=== PATIENT | male | born 1970 | race Caucasian/White ===

== ENCOUNTER 2018-03-24 15:52 | Emergency (ER) | payer SELFPAY ==
[2018-03-24 16:15] VITALS: PULSE 70; TEMP 98.6; O2SAT 100
[2018-03-24 17:31] LABS: SQUAMOUS EPITHIAL < 1 /hpf (0-5); URINE BILIRUBIN NEGATIVE (NEGATIVE); URINE BLOOD NEGATIVE (NEGATIVE); URINE CLARITY Clear (Clear); URINE COLOR Yellow (YELLOW); URINE GLUCOSE (UA) NORMAL (Normal); URINE LEUKOCYTE ESTERASE NEG Leu/uL (Negative); URINE PROTEIN NEGATIVE (NEGATIVE); URINE UROBILINOGEN NORMAL mg/dL (0.2-1.0)
--- NOTE | 2018-03-24 19:25 | US ---
Date of service: 03/24/2018 HISTORY: b/l (undescended) testicle pain x 3 days TECHNIQUE: Realtime sonography through the scrotum with color and doppler flow. COMPARISON: None Available. FINDINGS: RIGHT TESTICLE: Measures 3.09 x 0.83 x 1.35 cm. The right testicle is seen in the right groin region. Blood flow appreciated at the right testicle. RIGHT EPIDIDYMIS: Epididymal head measures 1.4 x 0.3 x0.95 cm. Grossly unremarkable appearance with normal flow. LEFT TESTICLE: Measures 2.5 x 0.76 x 1.5 cm. The left testicles is also seen in the left groin region. LEFT EPIDIDYMIS: Epididymal head measures 0.79 x 0.47 x 0.76 cm. Grossly unremarkable appearance with normal flow. HYDROCELE: None. VARICOCELE: None. OTHER FINDINGS: Bilateral enlarged lymph node in the inguinal region noted. IMPRESSION: Bilateral undescended testicles seen in the inguinal region. No evidence of testicular torsion. Mildly enlarged bilateral inguinal lymph nodes.
--- NOTE | 2018-03-24 19:46 | C.PDOC ---
Time Seen by Provider: 03/24/18 16:48 Chief Complaint (Nursing): Male Genitourinary History Per: Patient Onset/Duration Of Symptoms: Days (3) Current Symptoms Are (Timing): Still Present Severity: Moderate Quality Of Discomfort: "Pain" Alleviating Factors: None Additional History Per: Prior Records Past Medical History Reviewed: Historical Data, Nursing Documentation, Vital Signs Vital Signs: Last Vital Signs Temp 98.6 F 03/24/18 16:12 Pulse 70 03/24/18 16:12 Resp 18 03/24/18 16:12 BP 101/70 03/24/18 16:12 Pulse Ox 100 03/24/18 16:12 - Medical History PMH: Deep Vein Thrombosis Other PMH: Undescended testes Surgical History: No Surg Hx Family History: States: Unknown Family Hx - Social History Hx Tobacco Use: No Hx Alcohol Use: No Hx Substance Use: No - Immunization History Hx Tetanus Toxoid Vaccination: No Hx Influenza Vaccination: No Hx Pneumococcal Vaccination: No Review Of Systems Except As Marked, All Systems Reviewed And Found Negative. Constitutional: Negative for: Fever, Weakness Cardiovascular: Negative for: Chest Pain Respiratory: Negative for: Shortness of Breath Gastrointestinal: Negative for: Vomiting, Abdominal Pain Genitourinary: Negative for: Dysuria, Scrotal Pain Musculoskeletal: Negative for: Neck Pain, Back Pain Skin: Negative for: Rash Neurological: Negative for: Weakness, Numbness Physical Exam - Physical Exam Appears: Non-toxic, No Acute Distress Skin: Normal Color, Warm, Dry, No Rash Head: Atraumatic, Normacephalic Eye(s): bilateral: Normal Inspection, PERRL, EOMI Neck: Normal ROM, Supple Cardiovascular: Rhythm Regular Respiratory: Normal Breath Sounds, No Accessory Muscle Use Gastrointestinal/Abdominal: Soft, No Tenderness Back: No CVA Tenderness Male Genital: No Scrotal Swelling (scrotal sack is empty), Other (b/l undescended testes) Extremity: Normal ROM Neurological/Psych: Oriented x3, Normal Motor, Normal Sensation ED Course And Treatment O2 Sat by Pulse Oximetry: 100 Pulse Ox Interpretation: Normal - CT Scan/US Testicle US Other Rad Studies (CT/US): Read By Radiologist, Radiology Report Reviewed CT/US Interpretation: IMPRESSION: Bilateral undescended testicles seen in the inguinal region. No evidence of testicular torsion. Mildly enlarged bilateral inguinal lymph nodes. Disposition Discussed With : Catracho Lantigua Comment: He wants pt sent home on Ceftin 500mg bid x 10 days and f/up in his office. Doctor Will See Patient In The: Office Counseled Patient/Family Regarding: Studies Performed, Diagnosis, Need For Followup, Rx Given - Disposition Referrals: Catracho Lantigua MD [Staff Provider] - Disposition: HOME/ ROUTINE Disposition Time: 19:48 Condition: STABLE Additional Instructions: Follow up with a Urologist within 1-2 weeks for further evaluation and treatment. Return to the ER if you develop fever, vomiting, worsening of symptoms or if you have any other concerns. Prescriptions: Cefuroxime Axetil [Cefuroxime] 500 mg PO BID #20 tablet Naproxen [Naprosyn] 1 tab PO BID PRN #20 tab PRN Reason: Pain Instructions: Undescended Testes - Clinical Impression Clinical Impression: Testicle pain, Bilateral undescended testicles
[2018-03-24 19:59] VITALS: BP 135/70; RESP 14
== END 2018-03-24 20:00 | disposition home or self-care (01) ==
LOC: C.ER 15:52
DX: Q53.20 Undescended testicle, unspecified, bilateral (principal); N50.812 Left testicular pain; N50.811 Right testicular pain

== ENCOUNTER 2018-07-19 02:36 | Emergency (ER) | payer OTHER ==
--- NOTE | 2018-07-19 02:50 | C.PDOC ---
History Of Present Illness 48 year old male presents to the ER with a complaint of upper back pain that began at approximately 1900, associated with some nausea. Patient reports a Hx of similar in the past that resolved on it's own, which was dx as a muscle st rain. Pt also notes that he has a Hx of DVT, but without any leg swelling today. He admits to doing heavy lifting at home today. Denies weakness, numbness, chest pain, SOB, or vomiting. Time Seen by Provider: 07/19/18 02:49 Chief Complaint (Nursing): Back Pain History Per: Patient History/Exam Limitations: no limitations Onset/Duration Of Symptoms: Hrs Current Symptoms Are (Timing): Still Present Quality Of Discomfort: Unable To Describe Associated Symptoms: None Recent travel outside of the [place]: No Past Medical History Reviewed: Historical Data, Nursing Documentation, Vital Signs Vital Signs: Last Vital Signs Temp 97.5 F L 07/19/18 02:46 Pulse 54 L 07/19/18 02:46 Resp 20 07/19/18 02:46 BP 90/49 L 07/19/18 02:46 Pulse Ox 100 07/19/18 02:46 - Medical History PMH: Deep Vein Thrombosis Family History: States: Unknown Family Hx - Social History Hx Tobacco Use: No Hx Alcohol Use: No Hx Substance Use: No - Immunization History Hx Tetanus Toxoid Vaccination: No Hx Influenza Vaccination: No Hx Pneumococcal Vaccination: No Review Of Systems Constitutional: Negative for: Fever, Chills Cardiovascular: Negative for: Chest Pain, Palpitations Respiratory: Negative for: Shortness of Breath Gastrointestinal: Positive for: Nausea. Negative for: Vomiting Genitourinary: Negative for: Dysuria, Hematuria Musculoskeletal: Positive for: Back Pain (Upper) Neurological: Negative for: Weakness, Numbness Physical Exam - Physical Exam Appears: Non-toxic Skin: Normal Color, Warm, Dry Head: Atraumatic, Normacephalic Eye(s): bilateral: Normal Inspection, PERRL, EOMI Nose: Normal, No Flaring, No Discharge Oral Mucosa: Moist Tongue: Normal Appearing, No Swelling Lips: Normal Appearing Gingiva: Normal Appearing Throat: Normal, No Erythema, No Exudate Neck: Normal, Supple Chest: Symmetrical, No Tenderness Cardiovascular: Rhythm Regular Respiratory: Normal Breath Sounds, No Rales, No Rhonchi, No Wheezing Gastrointestinal/Abdominal: Normal Exam, Soft, No Tenderness Back: Normal Inspection, No CVA Tenderness, No Vertebral Tenderness, No Paraspinal Tenderness Extremity: Normal ROM, No Pedal Edema Neurological/Psych: Oriented x3, Normal Speech, Normal Cognition, Normal Motor, Normal Sensation Gait: Steady ED Course And Treatment - Laboratory Results Result Diagrams: 07/19/18 03:05 07/19/18 03:05 ECG: Interpreted By Me, Viewed By Me ECG Rhythm: Sinus Bradycardia ECG Interpretation: Normal Interpretation Of ECG: No STEMI Rate From EC O2 Sat by Pulse Oximetry: 100 (Room air) Pulse Ox Interpretation: Normal - CT Scan/US CTA Other Rad Studies (CT/US): Read By Radiologist, Radiology Report Reviewed CT/US Interpretation: CTA OF THE CHEST WITH IV CONTRAST. CLINICAL HISTORY: Chest pain. TECHNIQUE: Axial and reformatted sagittal and coronal images of the chest obtained after bolus IV contrast administration. FINDINGS: Normal enhancement of the main pulmonary artery and right and left pulmonary arteries. Normal enhancement of the bilateral peripheral pulmonary arteries. There is no demonstrated pulmonary embolism. Normal thoracic aorta and visualized great vessels. There is no demonstrated aortic dissection. Normal heart and pericardium. Normal mediastinum. Normal hilar regions. Normal visualized trachea and bronchi. The lungs are well expanded. Normal pulmonary parenchyma. Normal pleura. Normal chest wall structures. Normal osseous structures. Normal visualized upper abdomen. IMPRESSION: No demonstrated pulmonary embolism or arterial dissection. Medical Decision Making Medical Decision Makin yr old male p/w back pain. Notes he was lifting boxes when it occured. No chest pain or sob. No abdominal pain. No dark or bloody stool. No leg swelling. Given back pain and hx of DVT, will seek CTA. No leg swelling noted. CTA, CXR, and blood work ordered. Zofran administered. 17[address] Ct unremarkable. Abd remains non-ttp troponin and labs otherwise unremarkable given timeframe, likely non cardiac EKG w/ mildly sinus luis previously: TSH mildly elevated: no indication of myxedema coma. On monitor HR: 58 Given well appearance in NAD with Pain improved, clear for d/c home endrosed to pt msk chest pain as well as need to follow up w/ cards and endocrine for high TSH. Pt endorsed understanding and is agreeable. Disposition - Disposition Disposition Time: 05:34 Condition: GOOD Instructions: Muscle Strain (DC), Upper Back Pain (DC) Forms: [employer] (Sami) - Clinical Impression Clinical Impression: Back pain, Muscle strain - Scribe Statement The provider has reviewed the documentation as recorded by the Scribe Jaime Mcgee All medical record entries made by the Scribe were at my direction and personally dictated by me. I have reviewed the chart and agree that the record accurately reflects my personal performance of the history, physical exam, medical decision making, and the department course for this patient. I have also personally directed, reviewed, and agree with the discharge instructions and disposition.
[2018-07-19 03:16] LABS: BASO # 0.1 K/uL (0.0-0.2); BASO % 0.9 % (0.0-2.0); EOS # 0.2 K/uL (0.0-0.7); EOS % 2.8 % (0.0-4.0); HEMOGLOBIN 12.5 g/dL (12.0-18.0); LYMPH # 1.9 K/uL (1.0-4.3); MEAN CELL VOLUME 88.8 fL (80.0-94.0); MEAN CORPUSCULAR HEMOGLOBIN 28.8 pg (27.0-31.0); MEAN CORPUSCULAR HGB CONC 32.5 g/dL (33.0-37.0); MEAN PLATELET VOLUME 9.7 fL (7.2-11.7); MONO # 0.6 K/uL (0.0-0.8); MONO % 6.8 % (0.0-10.0); NEUT # 5.8 K/uL (1.8-7.0); NEUT % 67.5 % (50.0-75.0); RBC 4.34 Mil/uL (4.40-5.90); RED CELL DISTRIBUTION WIDTH 13.8 % (11.5-14.5); WHITE BLOOD COUNT 8.5 K/uL (4.8-10.8)
[2018-07-19 03:35] LABS: ALB/GLOB RATIO 1.1 (1.0-2.1); ALBUMIN 4.2 g/dL (3.5-5.0); ALT/SGPT 30 U/L (21-72); AST/SGOT 29 U/L (17-59); BLOOD UREA NITROGEN 30 mg/dL (9-20); CALCIUM 9.1 mg/dl (8.6-10.4); GFR NON-AFRICAN AMERICAN > 60; LIPASE 32 U/L (23-300)
[2018-07-19] MEDS ORDERED: Iodixanol 320 MG/ML 100 ML BOTTLE IV ONE (03:47)
[2018-07-19] MEDS ORDERED: Sodium Chloride 0.9% 1,000 ML IV ONE (04:00)
[2018-07-19 04:09] VITALS: RESP 16
[2018-07-19 05:13] VITALS: BP 107/63; PULSE 50; TEMP 98.1
[2018-07-19] MEDS ORDERED: Sodium Chloride 0.9% 1,000 ML ONE (05:20)
[2018-07-19 05:28] VITALS: O2SAT 100
--- NOTE | 2018-07-19 11:45 | CT ---
Date of service: 07/19/2018 PROCEDURE: CT Chest with contrast (Pulmonary Angiogram) HISTORY: back pain, hx of pe COMPARISON: None available. TECHNIQUE: Axial computed tomography images were obtained of the chest in the pulmonary arterial phase of enhancement. Coronal and sagittal reformatted images were created and reviewed. Intravenous contrast dose: 100 cc Visipaque Radiation dose: Total exam DLP = 264.23 mGy-cm. This CT exam was performed using one or more of the following dose reduction techniques: Automated exposure control, adjustment of the mA and/or kV according to patient size, and/or use of iterative reconstruction technique. FINDINGS: PULMONARY ARTERIES: The visualized pulmonary trunk, right and left main, segmental and proximal subsegmental branches of the pulmonary arteries are well opacified with no definitive filling defects seen to suggest acute central pulmonary embolus. Pulmonary trunk measures approximately 2.4 cm. AORTA: No acute findings. No thoracic aortic aneurysm. Ascending thoracic aorta measures approximately 3.2 cm and descending thoracic aorta measures approximately 2.2 cm. The. Minimal aortic atherosclerotic calcification or mural plaque present. LUNGS: Unremarkable. No nodule, mass or pulmonary consolidation. PLEURAL SPACES: Unremarkable. No effusion or pneumothorax. HEART: Heart size is upper limits of normal. No evidence of significant pericardial effusion. LYMPH NODES: No significant mediastinal or hilar the lymphadenopathy. Trachea midline and patent with no large central endoluminal lesions. Mild multilevel degenerative spondylosis of the thoracic spine. There are no acute compression fractures no retropulsed fragments. BONES, CHEST WALL: OTHER FINDINGS: Unremarkable. IMPRESSION: No evidence of acute central pulmonary embolus. No acute intrathoracic abnormality.
--- NOTE | 2018-07-20 12:53 | CARD ---
APPROVED REPORT Date of service: 07/19/2018 EKG Measurement Heart [id number] <Conclusion> Sinus bradycardia Otherwise normal ECG
== END 2018-07-19 05:44 | disposition home or self-care (01) ==
LOC: C.ER 02:36
DX: M54.6 Pain in thoracic spine (principal); S29.012A Strain of muscle and tendon of back wall of thorax, initial encounter; X58.XXXA Exposure to other specified factors, initial encounter; Y92.9 Unspecified place or not applicable; Z86.718 Personal history of other venous thrombosis and embolism
CPT/HCPCS: 71275; 80053; 83690; 84443; 84484; 85025; 93005; 96361; 96374; 99284; J2405; J7030; Q9967